=== PATIENT | female | born 1960 | race African-American/Black ===

== ENCOUNTER 2016-11-26 12:32 | Emergency (ER) | payer OTHER ==
[2016-11-26 13:10] VITALS: BP 117/80; PULSE 81; RESP 16; TEMP 98.4; O2SAT 95
[2016-11-26] MEDS ORDERED: TDAP ADULT 0.5 ML INJ (BOOSTRIX) IM ONE (13:10)
--- NOTE | 2016-11-26 14:55 | UCPHY ---
H & P Time Seen by Provider: 11/26/16 13:48 Patient Type: New HPI/ROS: This patient sustained a 5th finger laceration left hand from a knife at home shortly prior to arrival. She reports mild pain. The injury is to the palmar aspect-the IP joint region of the 5th finger. It occurred shortly prior to arrival. She has had mild bleeding controlled with pressure and denies any other complaints ROS: No numbness. No difficulty moving the finger. 5 point ROS is otherwise negative. Past Medical/Surgical History: Immunizations up-to-date Smoking Status: Never smoked Physical Exam: Physical Exam Vital signs are normal. General: No acute distress Eyes: Pupils equal and react to light. Extraocular motions are intact. Lungs: No respiratory distress. Cardiac: Brisk capillary refill is intact throughout. Pulses are 2+ and symmetric in the affected extremity. Skin: No rash or pallor. Patient has a 6 mm full-thickness laceration at the palmar aspect of the left 5th finger PIP joint with subcutaneous tissue evident but no deeper structures injured. No foreign bodies under examination. There is mild bleeding. Neuro: Alert with no sensorimotor deficits. Constitutional: Initial Vital Signs Temperature (C) 36.9 C 11/26/16 13:08 Heart Rate 81 11/26/16 13:08 Respiratory Rate 16 11/26/16 13:08 Blood Pressure 117/80 11/26/16 13:08 O2 Sat (%) 95 11/26/16 13:08 O2 Delivery Mode Room Air Allergies/Adverse Reactions: Penicillins Allergy (Verified 11/26/16 13:20) Medical Decision Making Procedures: Digital block: Chlorhexidine scrub the base the finger after verbal consent followed by a 27 gauge needle, 10 mL syringe with 6 mL injected 3 injections-0.5 % Marcaine, 2% plain lidocaine with good effect. There were no complications The wound is described physical exam-7 mm. The wound was copiously irrigated with saline. The wound was explored for foreign bodies and none were found. The wound was prepped and draped in the normal sterile fashion. The edges were reapproximated using 2 interrupted sutures with 4 0 Ethilon with good hemostasis and cosmesis. The patient tolerated the procedure well. There are no complications - Data Points Medications Given: Discontinued Medications Diphtheria/Tetanus/Acell Pertussis (Boostrix) 0.5 ml IM .ONCE ONE Stop: 11/26/16 13:11 Last Admin: 11/26/16 13:18 Dose: 0.5 ml Departure - Departure Disposition: Home, Routine, Self-Care Clinical Impression: Finger laceration Instructions: Finger Laceration (ED) Additional Instructions: Diagnosis: Finger laceration Plan: Keep the wound clean and dry for the next 2 days. Then clean daily with warm soapy water Return for suture removal in 10-12 days Return sooner for redness, discharge or other concerns for infection. Referrals: Anne Hui RN [Primary Care Provider] - As per Instructions - PQRS PQRS Measurement: NA
== END 2016-11-26 18:20 | disposition home or self-care (01) ==
LOC: CED 12:32
PROC: 0HQGXZZ Repair Left Hand Skin, External Approach (ICD-10-PCS; principal; 2016-11-26)
DX: S61.217A Laceration without foreign body of left little finger without damage to nail, initial encounter (principal); W26.0XXA Contact with knife, initial encounter; Z88.0 Allergy status to penicillin; Z23 Encounter for immunization
CPT/HCPCS: 12001-PO; 99203-PO; G0463-PO